=== PATIENT | male | born 1935 | race Hispanic/Latino ===

== ENCOUNTER 2018-04-28 11:17 | Inpatient (IN) | payer OTHER ==
[~2018-04-28] VITALS: Ht 154.9 cm; Wt 91.6 kg
[2018-04-28] MEDS ORDERED: DEXTROSE 50%-WATER 50 ML DISP.SYRIN IV ONE (11:25)
[2018-04-28] MEDS ORDERED: SODIUM CHLORIDE 0.9% 1000ML 2,000 ML IV ONE (11:35)
[2018-04-28] MEDS ORDERED: ONDANSETRON HCL 4 MG/2 ML VIAL ONE (11:35)
[2018-04-28 11:53] LABS: BASOPHILS % (AUTO) 0.1 % (0.0-5.0); HEMATOCRIT 42.6 % (42-54); LYMPHOCYTES % (AUTO) 1.8 % (21.0-51.0); MEAN CORPUSCULAR HEMOGLOBIN 30.1 pg (27.0-33.0); MEAN CORPUSCULAR HGB CONC 32.6 g/dL (32.0-36.0); MEAN CORPUSCULAR VOLUME 92.3 fL (79-99); MONOCYTES % (AUTO) 6.7 % (3.0-13.0); NEUTROPHILS % (AUTO) 91.4 % (40.0-77.0); PLATELET COUNT (AUTO) 200 K/uL (130-400); RED BLOOD CELL COUNT(AUTO) 4.62 MIL/uL (4.50-6.20); RED CELL DISTRIBUTION WIDTH 14.9 % (11.0-15.5); WHITE BLOOD COUNT (AUTO) 19.2 K/uL (4.8-10.8)
[2018-04-28] MEDS ORDERED: CEFTRIAXONE SODIUM 1 GM ONE (11:54)
[2018-04-28] MEDS ORDERED: ACETAMINOPHEN 325 MG TAB ONE (11:55)
[2018-04-28 12:07] LABS: CARBON DIOXIDE 24 mmol/L (21-32); CHLORIDE 104 mmol/L (101-111); CREATININE 1.5 mg/dL (0.5-1.5); GLOMERULAR FILTR. RATE CALC 48 mL/min (>60); POTASSIUM 3.5 mmol/L (3.5-5.1); SODIUM SERUM 141 mmol/L (136-145); UREA NITROGEN, BLOOD 29 mg/dL (7-18)
[2018-04-28 12:07] LABS: INR 0.98 (0.85-1.15); PARTIAL THROMBOPLASTIN TIME 26.6 SEC (26.3-35.5); PROTHROMBIN TIME 10.3 SEC (9.6-11.6)
[2018-04-28 12:08] LABS: ALANINE AMINOTRANSFERASE 30 U/L (12-78); ALBUMIN 3.4 g/dL (3.5-5.0); ASPARTATE AMINOTRANSFERASE 29 U/L (10-37); BILIRUBIN,TOTAL 0.9 mg/dL (0.2-1.0); CREATINE KINASE, TOTAL 210 U/L (21-232); GLUCOSE,RANDOM 46 mg/dL (70-105); MYOGLOBIN 245 ng/mL (10-92); TOTAL PROTEIN, SERUM 7.7 g/dL (6.0-8.3); TROPONIN I < 0.04 ng/mL (0.00-0.06)
[2018-04-28 12:21] LABS: APPEARANCE,URINE Cloudy (CLEAR); BILIRUBIN,URINE Negative (NEGATIVE); COLOR,URINE Yellow (YELLOW); GLUCOSE, URINE (UA) 500 mg/dL (NEGATIVE); KETONES,URINE Trace mg/dL (NEGATIVE); LEUKOCYTE ESTERASE ,URINE Negative (NEGATIVE); NITRATE,URINE Negative (NEGATIVE); OCCULT BLOOD,URINE Negative (NEGATIVE); PROTEIN,URINE Trace (NEGATIVE)
[2018-04-28] MEDS ORDERED: SODIUM CHLORIDE 0.9% 1000ML 1,000 ML IV SCH (12:26)
[2018-04-28] MEDS: CEFTRIAXONE SODIUM 1 GM IVP SCH (12:30)
[2018-04-28 12:44] LABS: BACTERIA,URINE Rare /HPF (None Seen); MUCUS,URINE Rare LPF (None Seen); RBC,URINE 0-1 /HPF (0-1); SQUAMOUS EPITHELIAL CELL,UR Few /HPF (0-2)
[2018-04-28] MEDS ORDERED: GLUCAGON 1MG KIT 1 MG ML IM PRN (12:45)
[2018-04-28] MEDS ORDERED: SODIUM CHLORIDE 0.9% 500ML 500 ML IV ONE (13:03)
[2018-04-28 14:00] VITALS: BP 107/61
[2018-04-28 15:42] VITALS: BP 112/85
[2018-04-28] MEDS ORDERED: PNEUMOCOCCAL VACCINE POLYVALENT 0.5 ML/VIAL [PPV] IM SCH (15:45)
[2018-04-28] MEDS: DEXTROSE 50%-WATER 50 ML DISP.SYRIN IV PRN ×2 (17:05→20:23)
[2018-04-28 19:19] VITALS: BP 115/33
[2018-04-28] MEDS: DEXTROSE 5 % AND 0.9 % NACL 1,000 ML IV SCH (20:22)
[2018-04-28] MEDS: ACETAMINOPHEN 325 MG TAB PO PRN (20:24)
[2018-04-28 23:02] VITALS: BP 109/85
[2018-04-29 03:00] VITALS: BP 129/68
[2018-04-29] MEDS: DEXTROSE 50%-WATER 50 ML DISP.SYRIN IV PRN ×3 (03:41→07:58)
[2018-04-29 04:03] LABS: BASOPHILS % (AUTO) 0.3 % (0.0-5.0); EOSINOPHILS % (AUTO) 0.7 % (0.0-8.0); MEAN CORPUSCULAR HEMOGLOBIN 31.2 pg (27.0-33.0); MEAN CORPUSCULAR HGB CONC 33.9 g/dL (32.0-36.0); MONOCYTES % (AUTO) 7.6 % (3.0-13.0); NEUTROPHILS % (AUTO) 87.4 % (40.0-77.0); PLATELET COUNT (AUTO) 185 K/uL (130-400); RED CELL DISTRIBUTION WIDTH 15.1 % (11.0-15.5)
[2018-04-29 04:22] LABS: ALBUMIN 2.3 g/dL (3.5-5.0); BILIRUBIN,TOTAL 0.6 mg/dL (0.2-1.0); POTASSIUM 3.6 mmol/L (3.5-5.1); TOTAL PROTEIN, SERUM 5.8 g/dL (6.0-8.3)
[2018-04-29] MEDS: DEXTROSE 5 % AND 0.9 % NACL 1,000 ML IV SCH (05:35)
[2018-04-29] MEDS ORDERED: SODIUM CHLORIDE 23.4% 30ML VL 77 MEQ in DEXTROSE 10%-WATER 980.75 ML IV SCH (07:30)
[2018-04-29 08:00] VITALS: BP 139/70
[2018-04-29] MEDS: SODIUM CHLORIDE 23.4% IV SCH ×2 (08:00→22:29)
[2018-04-29] MEDS: WATER IV SCH ×2 (08:00→22:29)
[2018-04-29] MEDS: DEXTROSE 10% IV SCH ×2 (08:00→22:29)
[2018-04-29] MEDS: [UNRECOGNIZED DRUG - OTHER] IV SCH ×2 (08:00→22:29)
[2018-04-29] MEDS: PANTOPRAZOLE SODIUM 40 MG TABLET.DR PO SCH (08:02)
[2018-04-29] MEDS: ENOXAPARIN SODIUM 40 MG/0.4 ML SYRINGE SQ SCH (08:12)
[2018-04-29 12:00] VITALS: BP 143/80
[2018-04-29] MEDS: CEFTRIAXONE SODIUM 1 GM IVP SCH (13:13)
[2018-04-29 15:46] VITALS: BP 149/94
[2018-04-29 19:00] VITALS: BP 131/67
[2018-04-29 23:00] VITALS: BP 151/70
[2018-04-30 04:00] VITALS: BP 135/74
[2018-04-30 04:46] LABS: BASOPHILS % (AUTO) 0.6 % (0.0-5.0); HEMATOCRIT 36.8 % (42-54); LYMPHOCYTES % (AUTO) 9.3 % (21.0-51.0); MEAN CORPUSCULAR HEMOGLOBIN 30.7 pg (27.0-33.0); MEAN CORPUSCULAR HGB CONC 33.5 g/dL (32.0-36.0); MEAN CORPUSCULAR VOLUME 91.7 fL (79-99); MONOCYTES % (AUTO) 10.2 % (3.0-13.0); NEUTROPHILS % (AUTO) 77.9 % (40.0-77.0); NUCLEATED RED BLOOD CELLS 0.1 % (0.0-0.19); PLATELET COUNT (AUTO) 185 K/uL (130-400); RED BLOOD CELL COUNT(AUTO) 4.02 MIL/uL (4.50-6.20); RED CELL DISTRIBUTION WIDTH 15.1 % (11.0-15.5); WHITE BLOOD COUNT (AUTO) 13.9 K/uL (4.8-10.8)
[2018-04-30 04:56] LABS: ALBUMIN 2.3 g/dL (3.5-5.0); BILIRUBIN,TOTAL 0.5 mg/dL (0.2-1.0); POTASSIUM 3.5 mmol/L (3.5-5.1); TOTAL PROTEIN, SERUM 6.1 g/dL (6.0-8.3)
[2018-04-30 05:03] LABS: HEMOGLOBIN A1C 5.5 % (4.0-6.0)
[2018-04-30 08:03] VITALS: BP 133/76
[2018-04-30] MEDS ORDERED: IPRATROPIUM/ALBUTEROL SULFATE 3 ML SOLUTION IH PRN (09:00)
[2018-04-30] MEDS: CLINDAMYCIN HCL 150 MG CAP PO SCH ×2 (09:53→16:45)
[2018-04-30] MEDS: PANTOPRAZOLE SODIUM 40 MG TABLET.DR PO SCH (09:58)
[2018-04-30] MEDS: ENOXAPARIN SODIUM 40 MG/0.4 ML SYRINGE SQ SCH (09:59)
[2018-04-30] MEDS ORDERED: FUROSEMIDE 10 MG/ML 4ML VIAL IV SCH (10:15)
[2018-04-30 11:43] VITALS: BP 126/66
[2018-04-30] MEDS: ACYCLOVIR TP SCH ×2 (12:16→21:29)
[2018-04-30 16:00] VITALS: BP 126/78
[2018-04-30 19:15] VITALS: BP 141/68
[2018-05-01 00:15] VITALS: BP 142/62
[2018-05-01] MEDS: CLINDAMYCIN HCL 150 MG CAP PO SCH ×3 (00:24→16:18)
[2018-05-01 03:57] LABS: BASOPHILS % (AUTO) 0.4 % (0.0-5.0); EOSINOPHILS % (AUTO) 3.4 % (0.0-8.0); LYMPHOCYTES % (AUTO) 10.5 % (21.0-51.0); MEAN CORPUSCULAR HEMOGLOBIN 31.2 pg (27.0-33.0); MEAN CORPUSCULAR HGB CONC 34.2 g/dL (32.0-36.0); MEAN CORPUSCULAR VOLUME 91.1 fL (79-99); MONOCYTES % (AUTO) 9.6 % (3.0-13.0); NEUTROPHILS % (AUTO) 76.1 % (40.0-77.0); PLATELET COUNT (AUTO) 214 K/uL (130-400); RED BLOOD CELL COUNT(AUTO) 4.06 MIL/uL (4.50-6.20); RED CELL DISTRIBUTION WIDTH 14.8 % (11.0-15.5); WHITE BLOOD COUNT (AUTO) 10.5 K/uL (4.8-10.8)
[2018-05-01 04:14] LABS: CREATININE 1.1 mg/dL (0.5-1.5); POTASSIUM 3.5 mmol/L (3.5-5.1)
[2018-05-01 04:15] VITALS: BP 134/81
[2018-05-01 07:48] VITALS: BP 148/77
[2018-05-01] MEDS: PANTOPRAZOLE SODIUM 40 MG TABLET.DR PO SCH (09:17)
[2018-05-01] MEDS: ACYCLOVIR TP SCH (09:18)
[2018-05-01] MEDS: ENOXAPARIN SODIUM 40 MG/0.4 ML SYRINGE SQ SCH (09:18)
[2018-05-01] MEDS ORDERED: LACTULOSE 20 GM/30 ML UDCUP PO SCH (10:00)
[2018-05-01 11:52] VITALS: BP 139/82
[2018-05-01] MEDS ORDERED: POTASSIUM CHLORIDE 10% ELIXIR 20 MEQ/15 ML UDCUP PO SCH (15:30)
[2018-05-01 15:39] VITALS: BP 137/73
[2018-05-01] MEDS: ACETAMINOPHEN 325 MG TAB PO PRN (16:27)
[2018-05-01] MEDS ORDERED: CLIN150C9 PO (16:29)
[2018-05-01] MEDS ORDERED: PANT40TA PO (16:29)
[2018-05-01] MEDS ORDERED: ACYC15OI7 TP (16:29)
== END 2018-05-01 18:15 | disposition home or self-care (01) | DRG 872 ==
LOC: EDH 11:17 → EDHIP 11:18 → 3CH 13:57
PROVIDERS: ADMIT Hospitalist; ATTEND Hospitalist
DX: A41.9 Sepsis, unspecified organism (principal); E87.2 Acidosis; L03.311 Cellulitis of abdominal wall; I10 Essential (primary) hypertension; B02.9 Zoster without complications; E11.36 Type 2 diabetes mellitus with diabetic cataract; E11.65 Type 2 diabetes mellitus with hyperglycemia; E66.9 Obesity, unspecified; H54.8 Legal blindness, as defined in USA; S30.861A Insect bite (nonvenomous) of abdominal wall, initial encounter; Z87.891 Personal history of nicotine dependence; Z68.38 Body mass index [BMI] 38.0-38.9, adult; Y93.89 Activity, other specified; Y92.89 Other specified places as the place of occurrence of the external cause; Y99.8 Other external cause status
CPT/HCPCS: 36415; 71045; 80048; 80053; 81001; 82550; 82947; 82948; 83036; 83605; 83874; 84484; 85025; 85610; 85730; 87040; 87088; 90732; 93005; 94640; 94664; A4218; G0008; G0009; J0696; J1650; J1940; J2405; J3490; J7030; J7040; J7042; J7070; J7131; Q2038